=== PATIENT | male | born 1975 | race African-American/Black ===

== ENCOUNTER 2020-01-30 09:41 | Emergency (ER) | payer OTHER ==
--- NOTE | 2020-01-30 11:26 | RAD REPORT ---
EXAM DESCRIPTION: RAD - Chest Pa And Lat (2 Views) - 01/30/2020 11:20 am CLINICAL HISTORY: DYSPNEA COMPARISON: None TECHNIQUE: Frontal and lateral views of the chest were obtained. FINDINGS: The lungs are clear. Heart size is normal and central vasculature is within normal limit s. No pleural effusion or pneumothorax seen. No acute bony finding noted. No aortic abnormality. IMPRESSION: No acute cardiopulmonary process.
[2020-01-30] MEDS ORDERED: IPRATROPIUM BROM 0.5MG/2.5ML ONE (12:00)
[2020-01-30] MEDS ORDERED: LEVALBUTEROL 1.25 MG/3 ML NEB ONE (12:00)
--- NOTE | 2020-01-30 12:39 | ER ---
Nurse's Notes [facility] Name: Nnamdi James Age: 44 yrs Sex: Male : 1975 Arrival Date: 01/30/2020 Time: 09:47 Bed 16 Private MD: Diagnosis: Dyspnea Presentation: 01/29 10:24 Chief complaint: Patient states: Congestion over the weekend. SOB on exertion, "felt ca1 like my heart was breathing fast and was having a hard time breathing". Denies cough and fever. Coronavirus screen: The patient has NOT traveled to a country currently being monitored by the [facility] within the last 14 days. The patient has NOT had contact with any known and/or suspected case of coronavirus. Ebola Screen: Patient negative for fever greater than or equal to 101.5 degrees Fahrenheit, and additional compatible Ebola Virus Disease symptoms Patient denies exposure to infectious person. Patient denies travel to an Ebola-affected area in the 21 days before illness onset. No symptoms or risks identified at this time. Initial Sepsis Screen: Does the patient meet any 2 criteria? No. Patient's initial sepsis screen is negative. Does the patient have a suspected source of infection? No. Patient's initial sepsis screen is negative. Risk Assessment: Do you want to hurt yourself or someone else? Patient reports no desire to harm self or others. Onset of symptoms was January 30, 2020. 10:24 Method Of Arrival: Ambulatory ca1 10:24 Acuity: CARMEN 3 ca1 Triage Assessment: 10:28 General: Appears in no apparent distress. comfortable, Behavior is calm, cooperative, ca1 appropriate for age. Respiratory: Reports shortness of breath on exertion Airway is patent Respiratory effort is even, unlabored, Respiratory pattern is regular, symmetrical. 11:30 Respiratory: the patient has mild shortness of breath. rb1 Historical: - Allergies: 10:28 No Known Allergies; ca1 - Home Meds: 10:28 None [Active]; ca1 - PMHx: 10:28 None; ca1 - PSHx: 10:28 None; ca1 - Immunization history:: Adult Immunizations up to date, Flu vaccine is not up to date. - Social history:: Smoking status: Patient denies any tobacco usage or history of. Screenin:30 Abuse screen: Denies threats or abuse. Nutritional screening: No deficits noted. rb1 Tuberculosis screening: No symptoms or risk factors identified. Fall Risk None identified. Assessment: 11:30 General: Appears in no apparent distress. comfortable, Behavior is calm, cooperative. rb1 General: Denies fever. Pain: Denies pain. Neuro: Level of Consciousness is awake, alert, obeys commands, Oriented to person, place, time, situation. Cardiovascular: Capillary refill < 3 seconds is brisk in bilateral fingers Rhythm is regular. Respiratory: Reports shortness of breath Airway is patent Respiratory effort is even, unlabored, Respiratory pattern is regular, symmetrical. GI: No signs and/or symptoms were reported involving the gastrointestinal system. : No signs and/or symptoms were reported regarding the genitourinary system. Derm: Skin is dry, Skin is normal, Skin temperature is warm. 11:30 Respiratory: Reports cough that is non-productive. rb1 12:30 Reassessment: Patient appears in no apparent distress at this time. Patient and/or rb1 family updated on plan of care and expected duration. Pain level reassessed. Patient is alert, oriented x 3, equal unlabored respirations, skin warm/dry/pink. Patient denies pain at this time. Patient states symptoms have improved. Vital Signs: 10:24 BP 134 / 79; Pulse 95; Resp 17 S; Temp 98.7(O); Pulse Ox 97% on R/A; Weight 136.08 kg ca1 (R); Height 6 ft. 3 in. (190.50 cm) (R); Pain 3/10; 12:25 BP 141 / 86; Pulse 61; Resp 18; Pulse Ox 100% ; Pain 0/10; rb1 10:24 Body Mass Index 37.50 (136.08 kg, 190.50 cm) ca1 ED Course: 09:47 Patient arrived in ED. rg4 10:27 Triage completed. ca1 10:28 Arm band placed on right wrist. ca1 10:40 Barbara Jiménez FNP-C is PHCP. kb 10:40 David Singer MD is Attending Physician. kb 11:25 Chest Pa And Lat (2 Views) XRAY In Process Unspecified. EDMS 11:27 Flu Sent. ca1 11:27 Flu and/or RSV swab sent to lab. ca1 11:30 Patient has correct armband on for positive identification. Bed in low position. Call rb1 light in reach. Side rails up X 1. Pulse ox on. NIBP on. 11:53 Claudia Day, RN is Primary Nurse. rb1 13:00 No provider procedures requiring assistance completed. Patient did not have IV access rb1 during this emergency room visit. Administered Medications: 12:03 Drug: AtroVENT Aerosol 0.5 mg Route: Inhalation; rb1 12:04 Drug: Xopenex 1.25 mg Route: Inhalation; rb1 Outcome: 12:38 Discharge ordered by . kb 13:00 Patient left the ED. rb1 13:00 Discharged to home ambulatory. rb1 13:00 Condition: stable 13:00 Discharge instructions given to patient, Instructed on discharge instructions, follow up and referral plans. Demonstrated understanding of instructions, follow-up care, Prescriptions given X none Signatures: Dispatcher [employer] EDMS Barbara Jiménez, CONVENTION SERVICES MANAGER-C CONVENTION SERVICES MANAGER-Claudia Chan, RN RN rb1 Veronica Cochran rg4 Nisha Ibanez RN RN ca1 Corrections: (The following items were deleted from the chart) 13:09 13:06 Patient left the ED. rb1 rb1
--- NOTE | 2020-01-30 12:39 | EDPHYS ---
Physician Documentation [facility] Name: Nnamdi James Age: 44 yrs Sex: Male : 1975 Arrival Date: 01/30/2020 Time: 09:47 Bed 16 Private MD: ED Physician David Singer HPI: 01/29 12:46 This 44 yrs old Black Male presents to ER via Ambulatory with complaints of Breathing kb Difficulty. 12:46 The patient has shortness of breath during heavy activity. Onset: The symptoms/episode kb began/occurred this morning. Duration: The symptoms are continuous. The patient's shortness of breath is aggravated by exertion, is alleviated by rest. Associated signs and symptoms: Pertinent positives: This patient does not have any pertinent positive signs or symptoms associated with shortness of breath. Pertinent negatives: chest pain, non-productive cough, productive cough, fever. Severity of symptoms: At their worst the symptoms were mild moderate in the emergency department the symptoms have improved. The patient has not experienced similar symptoms in the past. The patient has not recently seen a physician. Pt reports he had some nasal congestion over the weekend, took an allergy pill this morning and got short of breath while unloading a load from his truck. Resting comfortably on stretcher, no signs of resp distress. . Historical: - Allergies: 10:28 No Known Allergies; ca1 - Home Meds: 10:28 None [Active]; ca1 - PMHx: 10:28 None; ca1 - PSHx: 10:28 None; ca1 - Immunization history:: Adult Immunizations up to date, Flu vaccine is not up to date. - Social history:: Smoking status: Patient denies any tobacco usage or history of. ROS: 12:45 Constitutional: Negative for fever, chills, and weight loss, Cardiovascular: Negative kb for chest pain, palpitations, and edema, Abdomen/GI: Negative for abdominal pain, nausea, vomiting, diarrhea, and constipation, Back: Negative for injury and pain, MS/Extremity: Negative for injury and deformity, Skin: Negative for injury, rash, and discoloration, Neuro: Negative for headache, weakness, numbness, tingling, and seizure. 12:45 Respiratory: Positive for shortness of breath, on exertion. Negative for cough, dyspnea on exertion, hemoptysis, orthopnea, pleurisy, sputum production, wheezing. Exam: 12:46 Constitutional: This is a well developed, well nourished patient who is awake, alert, kb and in no acute distress. Head/Face: Normocephalic, atraumatic. ENT: Nares patent. No nasal discharge, no septal abnormalities noted. Tympanic membranes are normal and external auditory canals are clear. Oropharynx with no redness, swelling, or masses, exudates, or evidence of obstruction, uvula midline. Mucous membranes moist. Neck: Trachea midline, no thyromegaly or masses palpated, and no cervical lymphadenopathy. Supple, full range of motion without nuchal rigidity, or vertebral point tenderness. No Meningismus. Chest/axilla: Normal chest wall appearance and motion. Nontender with no deformity. No lesions are appreciated. Cardiovascular: Regular rate and rhythm with a normal S1 and S2. No gallops, murmurs, or rubs. Normal PMI, no JVD. No pulse deficits. Respiratory: Lungs have equal breath sounds bilaterally, clear to auscultation and percussion. No rales, rhonchi or wheezes noted. No increased work of breathing, no retractions or nasal flaring. Abdomen/GI: Soft, non-tender, with normal bowel sounds. No distension or tympany. No guarding or rebound. No evidence of tenderness throughout. Back: No spinal tenderness. No costovertebral tenderness. Full range of motion. Skin: Warm, dry with normal turgor. Normal color with no rashes, no lesions, and no evidence of cellulitis. MS/ Extremity: Pulses equal, no cyanosis. Neurovascular intact. Full, normal range of motion. Neuro: Awake and alert, GCS 15, oriented to person, place, time, and situation. Cranial nerves II-XII grossly intact. Motor strength 5/5 in all extremities. Sensory grossly intact. Cerebellar exam normal. Normal gait. Vital Signs: 10:24 BP 134 / 79; Pulse 95; Resp 17 S; Temp 98.7(O); Pulse Ox 97% on R/A; Weight 136.08 kg ca1 (R); Height 6 ft. 3 in. (190.50 cm) (R); Pain 3/10; 12:25 BP 141 / 86; Pulse 61; Resp 18; Pulse Ox 100% ; Pain 0/10; rb1 10:24 Body Mass Index 37.50 (136.08 kg, 190.50 cm) ca1 MDM: 11:29 Patient medically screened. kb 12:46 Data reviewed: vital signs, nurses notes. Data interpreted: Pulse oximetry: on room air kb is 97 %. Interpretation: normal. Counseling: I had a detailed discussion with the patient and/or guardian regarding: the historical points, exam findings, and any diagnostic results supporting the discharge/admit diagnosis, lab results, radiology results, the need for outpatient follow up, a family practitioner, to return to the emergency department if symptoms worsen or persist or if there are any questions or concerns that arise at home. 01/29 10:40 Order name: Flu; Complete Time: 12:09 kb 01/29 10:40 Order name: Chest Pa And Lat (2 Views) XRAY; Complete Time: 11:42 kb Administered Medications: 12:03 Drug: AtroVENT Aerosol 0.5 mg Route: Inhalation; rb1 12:04 Drug: Xopenex 1.25 mg Route: Inhalation; rb1 Disposition: 15:26 Co-signature as Attending Physician, David Singer MD. rn Disposition: 01/30/20 12:38 Discharged to Home. Impression: Dyspnea. - Condition is Stable. - Discharge Instructions: Shortness of Breath, [id number]. - Medication Reconciliation Form, Thank You Letter, Antibiotic Education, Prescription Opioid Use, Work release form form. - Follow up: Emergency Department; When: As needed; Reason: Worsening of condition. Follow up: Private Physician; When: 2 - 3 days; Reason: Recheck today's complaints, Continuance of care, Re-evaluation by your physician. Signatures: Dispatcher [employer] EDNJ Barbara Jiménez, MAINTENANCE SHOP LABORER-C MAINTENANCE SHOP LABORER-CkDavid Segovia MD MD rn Barber, Rebecca, RN RN rb1 Nisha Ibanez RN RN ca1 Corrections: (The following items were deleted from the chart) 13:06 12:38 01/30/2020 12:38 Discharged to Home. Impression: Dyspnea. Condition is Stable. rb1 Forms are Medication Reconciliation Form, Thank You Letter, Antibiotic Education, Prescription Opioid Use. Follow up: Emergency Department; When: As needed; Reason: Worsening of condition. Follow up: Private Physician; When: 2 - 3 days; Reason: Recheck today's complaints, Continuance of care, Re-evaluation by your physician. kb
[2020-01-30 13:22] VITALS: BP 134/79; TEMP 98.7; O2SAT 97
== END 2020-01-30 13:06 | disposition home or self-care (01) ==
LOC: ER 09:41
DX: R06.00 Dyspnea, unspecified (principal)
CPT/HCPCS: 71046; 87804; 99284